=== PATIENT | female | born 1945 | race Caucasian/White ===

== ENCOUNTER → 2021-03-09 | Outpatient (CLI) | payer OTHER, MEDICARE ==
[~2021-03-09] MED LIST: ALEVE220 M1 PO; AMITRIPTYLINE H10 M1 PO; BENADRYL25 MG PO; CALCIUM 600+D31 EACH PO; GINKGO BILOBA120 M1 PO; LOSARTAN POTASS50 MG PO; NEURONTIN300 MG PO; STOOL SOFTENER250 MG PO
[2021-03-09 11:22] LABS: URINE BILIRUBIN NEGATIVE (Negative); URINE BLOOD NEGATIVE (Negative); URINE CLARITY CLEAR; URINE COLOR YELLOW; URINE GLUCOSE-RANDOM* NEGATIVE (Negative); URINE KETONES NEGATIVE (Negative); URINE LEUKOCYTES-REFLEX NEGATIVE (Negative); URINE NITRITE-REFLEX NEGATIVE (Negative); URINE PROTEIN (DIPSTICK) NEGATIVE (Negative); URINE SPECIFIC GRAVITY 1.015 (1.005-1.035); URINE UROBILINOGEN 0.2 E.U./dl (0.2-1.0)
[2021-03-09 11:23] LABS: HEMATOCRIT 44.3 % (37.0-47.0); HEMOGLOBIN 14.8 gm/dL (12.0-15.0); MCH 30.4 pg (26.0-34.0); MCHC 33.5 g/dL (28.0-37.0); MCV 90.9 fL (80.0-100.0); RBC 4.88 mil/uL (4.20-5.00); RDW 12.8 % (10.5-14.5)
[2021-03-09 11:37] LABS: ALBUMIN 4.3 g/dL (3.4-5.0); CALCIUM 9.4 mg/dL (8.5-10.1); CREATININE 0.8 mg/dL (0.6-1.0); POTASSIUM 4.4 mmol/L (3.5-5.1)
[2021-03-09 11:38] LABS: PROTIME 10.9 Seconds (10.5-12.1)
== END ==
LOC: PAC 10:04
PROVIDERS: ATTEND Orthopaedic Surgery
DX: Z01.812 Encounter for preprocedural laboratory examination (principal); M16.11 Unilateral primary osteoarthritis, right hip

== ENCOUNTER → 2021-03-15 | Outpatient (CLI) | payer OTHER, MEDICARE | LOC: LAB 10:29 | PROVIDERS: ATTEND Student in an Organized Health Care Education/Training Program | DX: Z01.812 Encounter for preprocedural laboratory examination (principal); Z20.822 Contact with and (suspected) exposure to COVID-19 ==

== ENCOUNTER 2021-03-17 06:09 | Inpatient (IN) | payer OTHER, MEDICARE ==
[~2021-03-17] VITALS: Ht 162.6 cm; Wt 70.3 kg
[2021-03-17 07:35] VITALS: BP 163/85
--- NOTE | 2021-03-17 10:11 | O ---
[facility] [place] [address] OPERATIVE REPORT Name: NATHALIE ZALDIVAR Room #: 150-2 ADM IN M.R.#: [id number] Admission: 03/17/21 Attend Phys: Maximilian Matthews MD Discharge: Date of : 43 Report #: [id number] THIS REPORT FOR: cc: LLOYD ROCHE Physician not on staff Maximilian Matthews MD ~ DATE OF SERVICE: 03/17/2021 PREOPERATIVE DIAGNOSIS: Right hip degenerative arthritis. POSTOPERATIVE DIAGNOSIS: Right hip degenerative arthritis. PROCEDURE: Right total hip arthroplasty. SURGEON: Maximilian Matthews MD INDICATIONS: This slender, fit and still very active and independent 75-year-old female complains of rather severe right hip pain with limited range of motion. Clinical exam and x-rays confirm rather severe end-stage degenerative arthritis with marked loss of joint space and significant deformity and spurring. Given these findings and symptoms, she and her have decided to go ahead with right total hip arthroplasty. DESCRIPTION OF PROCEDURE: The patient was taken to the operating room where she was placed under general anesthesia. Prophylactic intravenous antibiotics were administered. She was turned to the left lateral decubitus position. The right hip, thigh and leg were meticulously prepped and draped. A slightly curving posterolateral skin incision was made centered over the greater trochanter. This was carried through fascia and the short external rotators were taken down exposing the posterior aspect of the hip joint. The hip was dislocated posteriorly. Marked degenerative change on both the femoral head and acetabulum was noted. A femoral neck osteotomy was performed. The femoral canal was prepared using reamers and hand broaches. The Galarza and Nephew hip system was utilized. A size 12 stem seemed to fit most appropriately. Attention was then directed to the acetabulum, which was well exposed and then reamed, gradually advancing to a 52 mm reamer. A Galarza and Nephew 52 mm diameter, 3-hole StikTite shell was selected. This was impacted into the acetabulum and alignment with her true acetabulum, which placed this at about 45 degrees off of vertical and about 25 degrees of anteversion. It seated nicely and appeared to be secure. In addition, 3 screws were placed through the apical holes, engaging good periacetabular bone with excellent purchase. A 36 mm polyethylene liner was then inserted placing the 20-degree elevated rim at about the 10 o'clock posterior position. This also seated nicely and appeared to be secure. The permanent femoral stem was then inserted using the Galarza and Nephew Synergy size 12 high offset femoral component. This was impacted in about 15-20 degrees of anteversion. It seated nicely and appeared to be secure. Trial reduction was [address] [address] OPERATIVE REPORT Name: NATHALIE ZALDIVAR Room #: 150-2 [facility] IN M.R.#: [id number] Admission: 03/17/21 Attend Phys: Maximilian Matthews MD Discharge: Date of : 43 Report #: [id number] performed and the hip was best suited for a +4 mm neck length and a 36 mm head size. The cobalt chrome 36 mm head with a +4 neck length was selected. This was impacted on the Waggoner taper. The hip was reduced. Alignment, range of motion, stability and leg length were assessed and felt to be satisfactory. The wound was copiously irrigated. Excellent hemostasis was established. A single Hemovac was left in the wound exiting through a separate stab incision. The capsule and short rotators were repaired back to bone using #1 FiberWire sutures through drill holes in greater trochanter. This also added nicely to hip stability. The fascia was then closed with multiple #1 Vicryl sutures. The subcutaneous tissues were closed with 0 Monocryl. The skin was closed with skin abigail. A sterile dressing was applied. The patient was awakened and returned to recovery room in good condition. <ELECTRONICALLY SIGNED> By: Maximilian Matthews MD 03/17/21 [id number] [id number] Maximilian Matthews MD /nt
[2021-03-17 13:52] VITALS: BP 124/62
[2021-03-17 15:51] VITALS: BP 112/90
[2021-03-17 17:22] LABS: HEMATOCRIT 37.5 % (37.0-47.0); HEMOGLOBIN 12.4 gm/dL (12.0-15.0)
[2021-03-17 19:52] VITALS: BP 117/58
--- NOTE | 2021-03-18 04:00 | NUR ---
RECEIVED CARE OF THIS PATIENT AT 1900. PATIENT ALERT AND ORIENTED X4. REMAINS ON BEDREST WITH PILLOW BETWEEN LEGS. VOIDS WITH ASSIST OF PURWICK. HAS GENNA DRESSING ON R HIP WITH ICE BAGS APPLIED. HAS MARITZA'S AND SCD'S ON. HEMAVAC PRESENT. IV PATENT WITH FLUIDS INFUSING IN THE RAC. C/O PAIN, MED GIVEN. SLEPT OFF AND ON DURING NIGHT.
[2021-03-18 05:32] LABS: HEMATOCRIT 33.4 % (37.0-47.0); HEMOGLOBIN 11.4 gm/dL (12.0-15.0); MCHC 34.1 g/dL (28.0-37.0); RBC 3.67 mil/uL (4.20-5.00); RDW 13.5 % (10.5-14.5); WBC 9.6 thou/uL (4.0-11.0)
[2021-03-18 07:49] VITALS: BP 131/61
--- NOTE | 2021-03-18 08:30 | NUR ---
Chart review. Dx Right hip. 75 year old female that lives at [facility] with her . She is a & o x 3, pleasant and able to make her needs know. 12 step to the apartment but they use the elevator. Has FWW. Manage her own mediation. Drives when her spouse will let her. Would like home health and anyone that [facility] uses per dave painter.
--- NOTE | 2021-03-18 09:54 | NUR ---
A/O X 4. ROOM AIR. ONE ASSIST WITH TRANSFERS AND ADLS, RIGHT 20 G AC PIV SALINE LOCKED-PATIENT DOESNT WANT ANYMORE IV FLUIDS. PUREWICK IN PLACE FOR INCONT URINE WORKING WELL-YELLOW 400CC NOTED IN CANISTER. GENNA DRESSING TO RIGTH HIP DRY, CLEAN, AND INTACT. HEMOVAC TO RIGHT HIP-200 CC DARK RED BLOOD DRAINED. NORCO 10/325 MG GIVEN FOR RIGHT HIP PAIN. XARELTO DVT PPX. BILATERAL TEDS ON. AT BEDSIDE,
[2021-03-18 17:19] VITALS: BP 127/67
[2021-03-18 21:09] VITALS: BP 145/63
--- NOTE | 2021-03-19 03:26 | NUR ---
ASSUMED CARE OF PT AT 1900. BEDSIDE REPORT RECIEVED, MYLES ASSESSMENT COMPLETE. GENNA DRESING CDI. NO APPARENT DRIANAGE ON DRESSING. MEDS GIVEN PER MAR, PAIN MEDS GIVEN ACCORDINGLY FOR R HIP PAIN. ALL NEEDS MET, HOURLY ROUNDING CONTINUING. CALL LIGHT IN REACH
[2021-03-19 06:09] LABS: HEMATOCRIT 28.4 % (37.0-47.0); HEMOGLOBIN 9.6 gm/dL (12.0-15.0); MCH 30.9 pg (26.0-34.0); MCHC 33.6 g/dL (28.0-37.0); MCV 91.8 fL (80.0-100.0); RBC 3.1 mil/uL (4.20-5.00); RDW 13.3 % (10.5-14.5); WBC 9.9 thou/uL (4.0-11.0)
[2021-03-19 08:20] VITALS: BP 124/66
[2021-03-19 10:54] VITALS: BP 124/66
--- NOTE | 2021-03-19 11:14 | NUR ---
PT ALERT AND ORIENTED TIMES FOUR. VSS. PT DENIES PAIN/SOA. PT UP TO RESTROOM WITH WALKER STANDBY ASSIST. PT TOLERATES MEDS AND MEALS. PT AT BEDSIDE. PLANS FOR DISCHARGE TODAY. PT PROGRESSING JANETT POC GOALS.
== END 2021-03-19 11:21 | disposition home health service (06) | DRG 470 ==
LOC: PRE → 4S 06:09 → TBA 06:09 → PRE 11:53 → 4S 12:58 → PRE 14:24 → 4S 03-19 11:21
PROVIDERS: Hospitalist; ADMIT Orthopaedic Surgery; ATTEND Orthopaedic Surgery
PROC: 0SR902Z Replacement of Right Hip Joint with Metal on Polyethylene Synthetic Substitute, Open Approach (ICD-10-PCS; principal; 2021-03-17)
DX: M16.11 Unilateral primary osteoarthritis, right hip (principal); Z88.0 Allergy status to penicillin; Z88.2 Allergy status to sulfonamides; Z88.8 Allergy status to other drugs, medicaments and biological substances; K21.9 Gastro-esophageal reflux disease without esophagitis; I10 Essential (primary) hypertension; B95.62 Methicillin resistant Staphylococcus aureus infection as the cause of diseases classified elsewhere; Z79.899 Other long term (current) drug therapy; Z82.49 Family history of ischemic heart disease and other diseases of the circulatory system; Z96.653 Presence of artificial knee joint, bilateral
CPT/HCPCS: 10102; 50010; 50101; 50382; 50414; 51412; 53000; 53367; 56521; 56525; 56530; 57095; 57103; 62110; 62900; 70005